=== PATIENT | female | born 1985 | race Hispanic/Latino ===

== ENCOUNTER 2018-02-13 08:40 | Inpatient (IN) | payer BC ==
[2018-02-13 08:56] VITALS: BMI 28.8
[2018-02-13] MEDS ORDERED: Lactated Ringer's 1,000 ML IV ONE (08:56)
[2018-02-13] MEDS ORDERED: Fentanyl/Bupivacaine HCl 250 ML EPI ONE (09:19)
[2018-02-13 11:08] LABS: BASO % 0.2 % (0.0-2.0); EOS # 0.1 K/uL (0.0-0.7); EOS % 0.8 % (0.0-4.0); HEMOGLOBIN 11.4 g/dL (12.0-16.0); LYMPH # 2.3 K/uL (1.0-4.3); LYMPH % 14.1 % (20.0-40.0); MEAN CELL VOLUME 95.5 fl (81.0-99.0); MEAN CORPUSCULAR HEMOGLOBIN 32.8 pg (27.0-31.0); MEAN CORPUSCULAR HGB CONC 34.3 g/dL (33.0-37.0); MEAN PLATELET VOLUME 8.4 fl (7.2-11.7); MONO # 0.9 K/uL (0.0-0.8); MONO % 5.6 % (0.0-10.0); NEUT # 12.7 K/uL (1.8-7.0); NEUT % 79.3 % (50.0-75.0); NRBC % 0.2 % (0.0-0.0); RBC 3.48 Mil/uL (3.80-5.20); RED CELL DISTRIBUTION WIDTH 14.5 % (11.5-14.5)
--- NOTE | 2018-02-13 11:31 | OBDS ---
DELIVERY PERSONNEL Delivery Doctor: Shivam Merino MD Ell Tutor: Nell Concepcion RN Anesthesiologist: Dr. Javed MATERNAL INFORMATION Delivery Anesthesia: Epidural Medications in Delivery: Pitocin 30 mu/500 mL Estimated Blood Loss (ml): 200 Placenta Cultured: No Maternal Complications: None LABOR SUMMARY EDC: 02/16/2018 00:00 No. Babies in Womb: 1 MEMBRANES Membranes Rupture Method: Spontaneous Rupture of Membranes: 02/13/2018 04:00 Amniotic Fluid Color: Clear Amniotic Fluid Amount: Scant Amniotic Fluid Odor: Normal
[2018-02-13] MEDS ORDERED: Oxycodone/Acetaminophen 5/325 mg Tab PO PRN ×4 (11:37→14:18)
[2018-02-13] MEDS ORDERED: Benzocaine/Menthol SPRAY TOP PRN ×2 (11:37→14:18)
--- NOTE | 2018-02-13 11:37 | OBHP ---
Datetime: 02/13/2018 10:05 IP Adm Impression: Term, intrauterine ; Active labor; Ruptured Membranes IP Admit Plan: Initiate labor protocol Admit Comment, IP Provider: Pt is a with No sig PMH presented to [facility] due to abd pain, contract ion, and gush of water that started at 4:00am in morning. Pt state that she was going to bathroom and when she sat down on toilet she start having uterine contractions Past medical history none Past surgical history none No known drug allergies Social history denies alcohol tobacco use care by Dr. Bruce best no complications transferred care at 36 weeks from [place] Review of systems patient denies headache chest pain shortness of breath palpitations nausea vomit ing diarrhea heat or cold intolerance easy bruisability musculoskeletal or neurological complaints Intrauterine term Active labor Vertex presentation Adequate pelvis Anticipate normal vaginal delivery Pelvic Type - PN: Adequate Back - PN: Normal Breast - PN: Not Done General - PN: Normal Presentation-Admit: Vertex FHR - Baseline A Provider: 145 Amniotic Fluid Color, Provider: Meconium, Light Membranes, Provider: Ruptured Pool Provider: Positive Nitrazine Provider: Positive EGA AdmitDate IP: 39.4 Vital Signs Provider: Within Normal Limits IP Indication for Induction: Not Applicable IP Chief Complaint: Uterine contractions; Suspected ruptured membranes NICHD Variability Prov Fetus A: Marked >25bpm NICHD Accel Fetus A IP Provider: [id number] FHR Category Provider Fetus A: Category II NICHD Decel Fetus A IP Provider: Variable Dilatation, Provider: 9 Genitourinary Exam: Normal DTRs - PN: Not Done
[2018-02-14 06:49] LABS: BASO % 0.2 % (0.0-2.0); EOS # 0.1 K/uL (0.0-0.7); EOS % 0.8 % (0.0-4.0); HEMOGLOBIN 10.2 g/dL (12.0-16.0); LYMPH # 2.7 K/uL (1.0-4.3); LYMPH % 17.5 % (20.0-40.0); MEAN CELL VOLUME 95.1 fl (81.0-99.0); MEAN CORPUSCULAR HGB CONC 34.7 g/dL (33.0-37.0); MEAN PLATELET VOLUME 8.3 fl (7.2-11.7); MONO % 6.6 % (0.0-10.0); NEUT # 11.5 K/uL (1.8-7.0); NEUT % 74.9 % (50.0-75.0); RBC 3.09 Mil/uL (3.80-5.20); RED CELL DISTRIBUTION WIDTH 14.2 % (11.5-14.5); WHITE BLOOD COUNT 15.4 K/uL (4.8-10.8)
[2018-02-15] MEDS ORDERED: Measles, Mumps, and Rubella 0.5 ML VIAL SC ONE (11:00)
[2018-02-15 20:48] VITALS: BP 110/65; PULSE 81; RESP 20; TEMP 98.3; O2SAT 100
== END 2018-02-15 15:55 | disposition home or self-care (01) | DRG 775 ==
LOC: H.EROB2 08:40 → H.L&D 08:56 → H.OB/GYN 14:15
PROVIDERS: ADMIT Obstetrics & Gynecology Gynecology; ATTEND Obstetrics & Gynecology Gynecology
PROC: 10E0XZZ Delivery of Products of Conception, External Approach (ICD-10-PCS; principal; 2018-02-13)
PROC: 0HQ9XZZ Repair Perineum Skin, External Approach (ICD-10-PCS; 2018-02-13)
PROC: 4A1HXCZ Monitoring of Products of Conception, Cardiac Rate, External Approach (ICD-10-PCS; 2018-02-13)
DX: O77.0 Labor and delivery complicated by meconium in amniotic fluid (principal); Z37.0 Single live birth; O69.81X0 Labor and delivery complicated by cord around neck, without compression, not applicable or unspecified; Z3A.39 39 weeks gestation of pregnancy; O70.0 First degree perineal laceration during delivery